=== PATIENT | female | born 1985 | race Two or more races ===

== ENCOUNTER 2025-01-15 21:41 | Emergency (ER) | payer MEDICAID, SELFPAY ==
[2025-01-15 21:43] VITALS: BMI 28.3
[2025-01-15 22:12] VITALS: BP 121/75; PULSE 60; RESP 18; TEMP 37.2; O2SAT 99
--- NOTE | 2025-01-15 22:21 | XR_ITS ---
Examination: CT cervical spine without contrast 2-D sagittal reconstructions 2-D coronal reconstructions 3-D reconstructions. Exam date and time:January 15, 2025, 1051 hours INDICATIONS: Injury to neck today, neck pain CTDI:vol (mGy) 7.87 DLP: (mGycm) 1034 Technique: Multiple 2 mm axial sections of the cervical spine have been obtained. The coronal and sagittal reconstructions have been obtained. 3-D reconstructions have been obtained. Low dose protocols were performed. One or more of the following dose reduction techniques were used; automated exposure control, adjustment of the mA and/or KV according to patient size, use of iterative reconstruction technique. Findings: Axial sections demonstrate intact base of the skull. C1 exhibit satisfactory relationship to the odontoid. No acute cervical vertebral body fracture seen. Alignment posterior spinous processes satisfactory. Impression: No acute cervical fracture.
--- NOTE | 2025-01-15 22:21 | XR_ITS ---
Examination: CT lumbar spine, without contrast. 2-D sagittal reconstructions. 2-D coronal reconstructions. 3-D reconstructions. Date and time of exam:January 15, 2025 10:58 PM INDICATIONS: Injury to lower back today, lower back pain CTDI: vol (mGy):32.1 DLP: (mGycm):866 Technique: Multiple 1.25 mm axial sections of the lumbar spine without intravenous contrast have been obtained. 2-D sagittal and coronal reconstructions have been obtained. 3-D reconstructions have been obtained. Low dose protocols were performed. One or more of the following dose reduction techniques were used; automated exposure control, adjustment of the mA and/or KV according to patient size, use of iterative reconstruction technique. Findings: Adequate alignment of lumbar vertebral bodies No lumbar fracture Mild disc narrowing L5-S1 Lumbar pedicles lamina transverse and posterior spinous processes intact L5-S1 4 mm central lumbar disc bulge contiguous with the S1 nerve roots extending to the left foramen with mild left L5 ganglionic compression 2 mm left renal calculus Mild left hydronephrosis which appears to be secondary to 5 mm distal left ureteral calculus image 120 IMPRESSION: No lumbar fracture. L5-S1 4 mm) lumbar disc bulge contiguous with the S1 nerve roots extending into the left foramen with mild left L5 ganglionic compression 2 mm left renal calculus Mild left hydronephrosis which appears to be secondary to 5 mm distal left ureteral calculus
--- NOTE | 2025-01-15 22:21 | XR_ITS ---
Examination: CT brain head without contrast. 2-D sagittal coronal reconstructions Date and time of exam:January 15, 2025 1051 hours INDICATIONS: Patient hit the back of the head today with head pain CTDI: vol (mGy):44.6 DLP: (mGycm):839 Technique: Multiple CT axial sections of the brain have been obtained, 5 mm slice thickness. Contrast has not been administered. 2-D sagittal, coronal reconstructions have been obtained Low dose protocols were performed. One or more of the following dose reduction techniques were used; automated exposure control, adjustment of the mA and/or KV according to patient size, use of iterative reconstruction technique. Findings: No significant ventricular enlargement. Intra-axial or extra-axial hemorrhage density is not seen. No mass effect or midline shift Basal cisterns are not remarkable. Fourth ventricle is midline. Cranial vault intact. Impression: Negative for acute hemorrhage, mass effect or midline shift
[2025-01-15 23:51] VITALS: BP 126/76; PULSE 76; RESP 18; TEMP 36.7; O2SAT 98
--- NOTE | 2025-01-16 04:06 | EDNOTE_ITS ---
<Statement entered by Dinorah To MD - 01/16/25 05:22> As co-signing physician, I was present and available for consult prn. I concur with the plan and care as documented by the midlevel provider. ED Fall Injury RME/HPI General Chief Complaint: Fall Stated Complaint: FALL THIS AM, BACK PAIN , LEFT ARM PAIN, HEAD Time Seen by Provider: 01/15/25 22:21 Arrival date/time: 01/15/25 21:41 39F with history of hysterectomy presents to ED with head and low back pain after she fell from a ladder and landed on her butt. Patient denies LOC, N/V, neck pain, ab pain, CP, SOB, vision changes, and drug/alcohol involvement. Limitations: no limitations Related Data Allergies Allergy/AdvReac Type Severity Reaction Status Date / Time No Known Allergies Allergy Verified 01/15/25 21:42 Review of Systems Review of Systems Systems Reviewed: All systems reviewed, normal except as documented Constitutional Constitutional: Reports system reviewed and no additional complaints, except as documented, Denies fever(s) and Denies headache(s) ENT Ears, Nose, Mouth, and Throat: Denies disequilibrium and Denies headache(s) Cardiovascular Cardiovascular: Reports system reviewed and no additional complaints, except as documented, Denies chest pain and Denies dyspnea Respiratory Respiratory: Reports system reviewed and no additional complaints, except as documented, Denies cough and Denies dyspnea Gastrointestinal Gastrointestinal: Reports system reviewed and no additional complaints, except as documented, Denies abdominal pain, Denies nausea and Denies vomiting Musculoskeletal Musculoskeletal: Reports as per HPI and Reports back pain Neurologic Neurologic: Reports system reviewed and no additional complaints, except as documented, Denies confusion, Denies disequilibrium and Denies headache(s) Psychiatric Psychiatric: Denies confusion Past Medical History Social History SMOKING STATUS: Never smoker ED Exam General Limitations: Present no limitations General appearance: Present alert and in no apparent distress Head Head exam: Present atraumatic Eye Eye exam: Present normal appearance, PERRL and EOMI ENT ENT exam: Present normal exam, normal oropharynx and mucous membranes moist Neck Neck exam: Present normal inspection, full ROM and trachea midline Chest Chest inspection: Present normal inspection and symmetric chest wall rise Respiratory Respiratory exam: Present normal lung sounds bilaterally Cardiovascular Cardiovascular exam: Present regular rate, normal rhythm and normal heart sounds Abdominal Exam Abdominal exam: Present soft and normal bowel sounds Extremities Exam Extremities exam: Present normal inspection and full ROM Back Exam Back exam: Present full ROM and tenderness Neurological Exam Neurological exam: Present alert, oriented X3 and CN II-XII intact Psychiatric Psychiatric exam: Present normal affect and normal mood Skin Skin exam: Present warm, dry, intact and normal color Course Quality Measures none Orders Category Date Time Status CT cervical spine wo con Stat Exams 01/15/25 22:[address] head/brain wo con Stat Exams 01/15/25 22:[address] lumbar spine wo con Stat Exams 01/15/25 22:21 Completed Vital Signs Vital signs: Vital Signs Temperature 98.9 F 01/15/25 22:12 Pulse Rate 60 01/15/25 22:12 Respiratory Rate 18 01/15/25 22:12 Blood Pressure 121/75 01/15/25 22:12 Pulse Oximetry (%) 99 01/15/25 22:12 Oxygen Delivery Method Room Air 01/15/25 22:12 O2 at 99% on RA and WNLs Fall MDM Narrative MDM Narrative:: 39F with history of hysterectomy presents to ED with head and low back pain after she fell from a ladder and landed on her butt. Patient denies LOC, N/V, neck pain, ab pain, CP, SOB, vision changes, and drug/alcohol involvement. Physical exam reveals normal pupil response and EOM. Neck ROM intact. Some generalized low back tenderness. Gait normal. Normal WOB. Patient is afebrile, calm, and alert. CT reveals lumbar disc bulg, but no fx. Unknown if chronic or from fall. Community Support Worker given. Incidentally kidney stones seen in CT, which patient knows about already. Patient data External records reviewed:: None Clinical information provided by:: patient Social determinants that could affect healthcare access:: none Patient has the following chronic illnesses:: hysterectomy How is presenting disease/condition affected by chronic disease/condition?: uneffected by Evaluation data The following diagnostics were reviewed and interpreted by me:: radiology exam(s) Lab and/or radiology exams considered but not ordered:: ordered Interpretation Summary: above Medications / Prescriptions Medications or Prescriptions considered but not ordered:: not ordered Medication administrations:: n/a Consultations Consultation(s) initiated? (list below): No Diagnosis Fall Differential Diagnosis: syncope, dislocation of shoulder region, fracture of wrist, compression fracture, concussion without loss of consciousness and other (lumbar fx, bulging disc, kidney stones, cervical fx/contusion, brain bleed) Most likely diagnosis given after review of the tests above:: bulging disc, kidney stones Admission Indicated Admission indicated?: not indicated Admission Request Was there a request for admission?: No Disposition Plan Disposition Plan: Discharge Discharge Attestation Discharge Attestation: The patient and all family members were given an opportunity to ask questions and understood the discharge instructions. Discharge instructions specifically effects, indications for sooner follow up or return to the emergency department, and the expected course of current diagnosis. Patient condition: Stable Discharge Plan Plan Patient Disposition: HOME (Self Care) Discharge Disposition comment: Stable Prescriptions/Referrals Referrals: Sukhwinder Ontiveros PA-C [Primary Care Provider] - In 1 week Problem List Clinical Impression: Bulging disc, Kidney stone Patient/Caregiver Discharge Instructions Education Materials: ED Back Pain (Acute or Chronic), ED Kidney Stone Undescended No ... Additional Instructions: Please follow-up with PCP within 24-48 hours and return immediately if symptoms worsen. If problem persists, recommend outpatient PT and/or MRI follow-up. In the meantime, rest, use ice/heat, and/or compression. Print Language: Yakut Stand Alone Forms: Patient Portal Info Letter CORY/ROBERTO Supervising Physician CORY/ROBERTO Supervising Physician: Dr. To
== END 2025-01-15 23:53 | disposition home or self-care (01) ==
PROVIDERS: Emergency Provider Emergency Medicine; PCP Physician Assistant
DX: S39.92XA Unspecified injury of lower back, initial encounter (principal); M51.370 Other intervertebral disc degeneration, lumbosacral region with discogenic back pain only; N20.0 Calculus of kidney; S19.9XXA Unspecified injury of neck, initial encounter; S09.90XA Unspecified injury of head, initial encounter; W11.XXXA Fall on and from ladder, initial encounter
CPT/HCPCS: 70450; 72125; 72131; 99284